=== PATIENT | female | born 1950 | race Caucasian/White ===

== ENCOUNTER 2019-07-02 05:08 | Day surgery (SDC) ==
[2019-06-22 11:31] LABS: URINE SOURCE CLEAN CATCH
[2019-06-22 11:37] LABS: BASO# 0.07 X1000 (0.0-0.2); BASO% 0.8 % (0.0-0.8); EOS# 0.24 X1000 (0.0-0.7); EOS% 2.7 % (0.0-10.0); HEMATOCRIT 43.4 % (37.0-47.0); HEMOGLOBIN 14.1 g/dL (12.0-16.0); IMM GRAN# 0.02 X1000 (0.0-0.04); IMM GRAN% 0.2 % (0.0-0.5); LYMPH# 2.12 X1000 (1.2-3.4); LYMPH% 24.1 % (20.5-51.1); MCH 30.3 PG (27-31); MCHC 32.5 g/dL (33-37); MCV 93.3 FL (81-99); MONO# 0.73 X1000 (0.11-0.59); MONO% 8.3 % (1.7-9.3); MPV 9.2 FL (7.4-10.4); NEUT# 5.63 X1000 (1.4-6.5); NEUT% 63.9 % (42.2-75.2); PLT 387 X1000 (130-400); RBC 4.65 XMIL (4.2-5.4); RDW 14.3 % (11.5-14.5); WBC 8.81 X1000 (4.8-10.8)
[2019-06-22 11:47] LABS: INR 0.99; PROTIME 13.2 Seconds (11.0-16.0)
--- NOTE | 2019-06-22 11:47 | EKG Report ---
Test Performed on : 06/22/2019 11:16:18 AM Test Reason : PAT Blood Pressure : / mmHG Vent. Rate : 051 BPM Atrial Rate : 051 BPM P-R Int : 184 ms QRS Dur : 084 ms QT Int : 438 ms P-R-T Axes : 047 -19 010 degrees QTc Int : 403 ms Sinus bradycardia. Septal infarct , age undetermined Abnormal ECG When compared with ECG of 21-OCT-2015 19:51, Vent. rate has decreased BY 31 BPM Septal infarct is now present Nonspecific T wave abnormality now evident in Inferior leads Confirmed by Theodore MCKEON, Marky Wall ([id number]) on 06/22/2019 4:36:20 PM
[2019-06-22 11:50] LABS: HEMOGLOBIN A1C 6.1 % (4.8-6.0)
[2019-06-22 12:00] LABS: AGAP 11; ALBUMIN 3.7 g/dL (3.5-5.0); BUN 16 mg/dL (8-22); CALCIUM 8.9 mg/dL (8.8-10.2); CHLORIDE 102 mmol/L (98-107); COSMO 279; CREATININE 0.9 mg/dL (0.5-0.9); ESTIMATED GFR > 60; GLUCOSE 95 mg/dL (70-104); POTASSIUM 3.8 mmol/L (3.5-5.1); SODIUM 139 mmol/L (136-145); TCO2 26 mmol/L (25-35)
[2019-06-22 12:06] LABS: BILIRUBIN URINE NEGATIVE (NEGATIVE); BLOOD URINE SMALL (NEGATIVE); COLOR YELLOW; GLUCOSE URINE NEGATIVE (NEGATIVE); KETONE URINE NEGATIVE (NEGATIVE); LEUKOCYTES URINE NEGATIVE (NEGATIVE); NITRITE URINE NEGATIVE (NEGATIVE); PH URINE 5.5; PROTEIN URINE NEGATIVE (NEGATIVE); SP GRAVITY URINE 1.018; TURBIDITY URINE CLEAR (CLEAR); UROBILINOGEN URINE NORMAL (NORMAL)
[2019-06-22 12:08] LABS: UR EPITHELIAL CELLS <10 /HPF (<10); URINE BACTERIA NEGATIVE /HPF; URINE RBC <10 /HPF (<10); URINE WBC <10 /HPF (<10)
[2019-07-02] MEDS ORDERED: REGLAN ONE (05:37)
[2019-07-02] MEDS ORDERED: COLACE ONE (05:37)
[2019-07-02] MEDS ORDERED: PEPCID ONE (05:37)
[2019-07-02] MEDS ORDERED: LR 1,000 ML ONE (05:38)
[2019-07-02] MEDS ORDERED: CELEBREX ONE (05:38)
[2019-07-02] MEDS ORDERED: LYRICA ONE (05:38)
[2019-07-02] MEDS ORDERED: KEFZOL 1 GM/D5W 2 GM/100 ML IVPB ONE (05:38)
[2019-07-02] MEDS ORDERED: DIPRIVAN 1% 500 MG/50 ML BOTTLE ONE (06:32)
[2019-07-02] MEDS ORDERED: TORADOL ONE (06:37)
[2019-07-02] MEDS ORDERED: SENSORCAINE 0.25%/EPI 1:200,000 ONE (06:37)
[2019-07-02] MEDS ORDERED: DURAMORPH ONE (06:37)
[2019-07-02] MEDS ORDERED: EXPAREL 1.3% ONE (06:38)
[2019-07-02] MEDS ORDERED: SODIUM CHLORIDE 0.9% ONE (06:38)
[2019-07-02] MEDS: CYKLOKAPRON 1,000 MG/NS 2,000 MG/200 ML IVPB ONE ×2 (07:20→09:20)
[2019-07-02] MEDS ORDERED: DIPRIVAN 1% ONE ×2 (08:07→09:12)
[2019-07-02] MEDS ORDERED: NEO-SYNEPHRINE ONE (08:14)
[2019-07-02] MEDS ORDERED: EPHEDRINE ONE (08:14)
[2019-07-02] MEDS ORDERED: EPINEPHRINE ONE (08:14)
[2019-07-02 08:55] LABS: URINE SOURCE CATH
[2019-07-02 09:02] LABS: BILIRUBIN URINE NEGATIVE (NEGATIVE); BLOOD URINE MODERATE (NEGATIVE); COLOR YELLOW; GLUCOSE URINE NEGATIVE (NEGATIVE); KETONE URINE NEGATIVE (NEGATIVE); LEUKOCYTES URINE NEGATIVE (NEGATIVE); NITRITE URINE NEGATIVE (NEGATIVE); PROTEIN URINE TRACE mg/dL (NEGATIVE); SP GRAVITY URINE 1.018; TURBIDITY URINE CLEAR (CLEAR); UROBILINOGEN URINE NORMAL (NORMAL)
[2019-07-02 09:05] LABS: UR EPITHELIAL CELLS <10 /HPF (<10); URINE BACTERIA NEGATIVE /HPF; URINE WBC <10 /HPF (<10)
[2019-07-02] MEDS ORDERED: MARCAINE 0.25% PF ONE (09:15)
[2019-07-02] MEDS ORDERED: DEPO-MEDROL ONE (09:15)
[2019-07-02] MEDS ORDERED: NS 1,000 ML ONE (10:01)
[2019-07-02] MEDS ORDERED: VANCOMYCIN 1 GM/NS 1 GM/250 ML IVPB IV ONE (10:06)
[2019-07-02] MEDS ORDERED: MILK OF MAGNESIA PO PRN (10:06)
[2019-07-02] MEDS ORDERED: MORPHINE IV PRN (10:06)
[2019-07-02] MEDS ORDERED: ZOFRAN IV PRN (10:06)
[2019-07-02] MEDS ORDERED: OXY IR PO PRN ×2 (10:06)
[2019-07-02] MEDS ORDERED: ZOFRAN PO PRN (10:06)
[2019-07-02] MEDS: DILAUDID ONE ×4 (10:12→10:34)
[2019-07-02] MEDS ORDERED: KEFZOL 1 GM/D5W 1 GM/50 ML IVPB IV SCH (10:15)
--- NOTE | 2019-07-02 10:38 | Diag Imaging Result Doc PS360 ---
XRAY HIP UNILATERAL RT - 07/02/2019 INDICATION: Post-Op TECHNIQUE: Two views COMPARISON: 07/03/2018 FINDINGS: There has been placement of a right total hip arthroplasty in good position. Alignment is anatomic. No hardware fracture or loosening. IMPRESSION: No complication. Electronically signed by Teddy Conway 07/02/2019 10:36 AM
[2019-07-02] MEDS ORDERED: OXY IR ONE (10:46)
[2019-07-02] MEDS: NS 1,000 ML IV SCH ×2 (11:30→22:42)
[2019-07-02] MEDS: TYLENOL PO SCH ×2 (12:08→18:24)
[2019-07-02] MEDS: ULTRAM PO SCH ×2 (12:09→18:24)
--- NOTE | 2019-07-02 12:27 | OPERATIVE NOTE ---
PROCEDURE DATE : 07/02/2019 PREOPERATIVE DIAGNOSES: 1. Right hip osteoarthritis. 2. Right knee osteoarthritis. POSTOPERATIVE DIAGNOSES: 1. Right hip osteoarthritis. 2. Right knee osteoarthritis. PROCEDURES PERFORMED: 1. Right total hip arthroplasty. 2. Intraarticular Depo Medrol injection into the right knee. SURGEON: Dr. Sanford Andres ASSISTANTS: 1. Estela Gonsalez. 2. Atilio Perea. ANESTHESIA: Spinal anesthetic with conscious sedation. COMPLICATIONS: None. SPECIMENS: None. DRAINS: None. BLOOD LOSS: 150 mL. IMPLANTS: 1. Biomet G7 three-hole acetabular cup measuring 52 mm with liner size E. 2. Biomet G7 highly crosslinked neutral polyethylene liner size E for a 36 mm head. 3. Size 10 taper lock complete microplasty press-fit stem, standard offset, with a 36 mm cobalt chrome head and a minus 6 neck. INDICATION FOR PROCEDURE: Ms. Culp is a 69-year-old lady who has been followed for complaints of right hip pain. She tried and failed conservative treatment modalities including oral anti- inflammatories and physical therapy. She reports pain progressed to where it was impacting activities of daily living and wished to proceed with total hip replacement. Risks, benefits and alternative therapies were discussed with the patient regarding surgery. Risks of surgery included but were not limited to risk of bleeding and infection, damage to nerves and vessels around the area, leg length discrepancy, continued pain following surgery, dislocation and need for revision surgery. There is also risk of anesthesia including blood clot, stroke, heart attack and even . The patient understands these risks. All questions were answered. Informed consent was obtained. DESCRIPTION OF PROCEDURE: Ms. Culp was identified by wrist band and greeted in the preoperative holding area on 07/02/2019. Her right lower extremity, which was the operative site, was marked with indelible ink per [facility] protocol. Following this, the patient was transferred back to the operating room for surgery. Upon entering the OR, spinal anesthetic was administered on her hospital bed. She was then consciously sedated and transferred onto a [place] table in supine position. All bony prominences were well padded. Bilateral feet were placed into the well leg boot holders. At this time, all bony prominences were well padded. The right lower extremity was prepped and draped in routine sterile fashion. Formal time-out was performed confirming correct patient, procedure, operative site, operative side, administration of preoperative antibiotics. Everyone was in agreement. Patient received 2 g Ancef prior to incision. A 10-blade knife was used to make a standard 10 cm incision for direct anterior approach to the hip. The knife was used to dissect through skin. Bovie cautery was used to dissect through subcutaneous tissue down to tensor fascia. Once the tensor fascia was identified, a fresh knife was used to make a longitudinal bernardo in the fascia, and curved Philip scissors were used to spread this incision along the length of our skin incision. Once this was done, the muscle belly of tensor fascia was teased off the anterior fascia until we full on the interval between sartorius and tensor fascia. Blunt Cobra was then placed superiorly over the femoral neck into the saddle. Once this was done, a hemostat was used to bluntly dissect and spread through the deep plane and fat between rectus femoris and tensor fascia. Lateral ascending circumflex vessels were identified and coagulated with the Bovie. Once this was done, we split through this interval down on the pericapsular fat. An additional blunt Cobra was placed along the inferior neck. At this time, capsular fat was elevated heading out to the acetabulum. A blue-handled 90 degree Hohmann was then placed over the anterior capsule and anterior acetabular lip. Once this was done, the elevator was used to clean off the capsule. We had excellent visualization of the anterior capsule. Bovie was used to make our anterior capsulotomy and using an inverted T-shaped capsulotomy. Number 1 Vicryl tagging sutures were then placed on the corners of the capsule to help with retraction and later closure of the capsular layer. Once this was done, we then released the capsule both superiorly and inferiorly. Inferiorly, our release was taken down to the level of the lesser trochanter. Our retractors were then placed within the capsule both superior and inferior to the femoral neck. Rongeur was used to remove large femoral neck osteophyte. We then marked the femoral neck at the level of our cut, and sagittal saw was used to make our femoral neck cut in routine fascia. A corkscrew was then used to remove the femoral head in routine fashion. Once this was done, retractors were replaced to give visualization of the acetabulum. We had a curved Hohmann retractor on the anterior superior acetabulum followed by sharp Hohmann over the posterior wall and a blunt Cobra over the anterior inferior acetabulum. A long-handled knife was used to remove surrounding labrum. Transverse acetabular ligament was visualized and left intact to help hand trimmer version of the cup. Bovie cautery was then used to clean out the fovea to the medial wall. Curet was used to ensure we had come down the medial wall. Once this was done, we then began with sequential reaming of the acetabulum starting with a 45 mm reamer for medialization. We then progressed to 47, 49 and 51 mm reamer. A 51 mm trial was then impacted and found to have good fit. We thus opened a 52 mm, 3-hole G7 acetabular liner and impacted this in position under fluoroscopy, trying to get 40 degrees of abduction and about 20 degrees of anteversion. We were satisfied with position of the cup. It was impacted into place and found to have good press-fit. We then proceeded with placement of 2 screws into the posterior superior quadrant in routine fashion. Both screws measured 30 mm. At this time, a neutral 36 mm size E polyethylene liner was impacted into position. We then proceeded with exposure of our femur. We began doing our femoral release. A curved Hohmann was placed over the posterior aspect of the greater trochanter. Bovie was then used to take the superior capsule off the greater trochanter in routine fashion. Once this release was complete, the 2-prong retractor was placed over the posterior aspect of the greater trochanter. Bone hook was placed in the femoral canal. Traction was released from the leg, and the leg was then extended and adducted while levering the femur out into the wound. Once we had good exposure of the femur, we then proceeded with using a rongeur to remove the remaining lateral femoral neck. Entry reamer was then used to go down the canal followed by the rat tail canal finder. At this time, we began with sequential broaching, starting with a size 4 and working our way up to a size 10. We had excellent press-fit with a size 10 stem. Calcar planer was then used to level off our femoral neck cut. We then trialed a standard offset minus 3 head. The leg was taken through full range of motion and found to be stable with this construct. She has slightly long compared to the contralateral side, so we decided to proceed with placement of a size 6 head. At this time, our trial implant was removed, and the femoral canal was copiously irrigated with normal saline. We then impacted a size 10 microplasty complete taper lock stem which had excellent press-fit. The minus 6 ball was trialed and found to have good stability with no signs of impingement or dislocation. Our final minus 6 neck with 36 mm cobalt chrome head was then impacted into position, and the hip was again reduced. At this time, final x-rays were taken with AP of the pelvis showing leg lengths. The patient was found to be a couple of millimeters long on the right side; however, she had a good stable hip, so we decided to proceed with this construct. Now we were satisfied with the version and placement of the cup. At this time, 250 mL of our 0.35% Betadine solution was poured into the wound and allowed to soak for 3 minutes. Once this was done, the hip was copiously irrigated with normal saline. Our deep Exparel cocktail was then injected around our anterior posterior capsule as well as rectus femoris, vastus lateralis, tensor fascia and sartorius. We then injected around the skin with our superficial Exparel cocktail. Following this, we proceeded with closure of the wound. We first closed our arthrotomy using number 1 Vicryl sutures. Following this, a running locking 0 Vicryl suture was used to close the tensor fascia. I placed several deep 0 Vicryl sutures for deep subcutaneous tissue closure followed by 2-0 Vicryl for subcutaneous tissue closure and 4-0 Monocryl for skin closure. The wound was then dressed with Dermabond and an Island dressing. At this time, all drapes were broken down, and we proceeded with injection of the right knee. The right knee was cleansed with Betadine. We then injected 80 mg of Depo Medrol plus 4 mL of 0.5% Marcaine plain through a superolateral injection site. The wound was then cleaned with alcohol, and Betadine was placed. At this time, the patient was then awakened, transferred over to hospital stretcher and taken to the recovery room in stable condition. There were no acute complications during the procedure. All sponge, needle and instrument counts were correct at the conclusion of the procedure.
[2019-07-02] MEDS: KEFZOL 2 GM/D5W 2 GM/50 ML IVPB IV SCH ×2 (15:50→22:41)
[2019-07-02] MEDS: LYRICA PO SCH (20:21)
[2019-07-02] MEDS: PERIDEX MT SCH (20:21)
[2019-07-02] MEDS: CELEBREX PO SCH (20:21)
[2019-07-03] MEDS: ULTRAM PO SCH ×2 (01:44→06:02)
[2019-07-03] MEDS: TYLENOL PO SCH ×2 (01:44→06:01)
[2019-07-03] MEDS: COLACE PO SCH ×2 (01:44→08:02)
--- NOTE | 2019-07-03 06:55 | ORTHOPAEDICS PROGRESS NOTE ---
DATE: 07/02/2019 SUBJECTIVE: No acute events today. Patient ambulated 25 feet with physical therapy. She states she is feeling great and significantly better than she did preoperatively. She did have a little bit of lightheadedness while ambulating, likely secondary to anesthesia wearing off. She states she feels great now. Her Emery has been removed and she has urinated twice. No complaints. OBJECTIVE: Afebrile. Vital signs are stable. Extremities: Examination of the right lower extremity shows surgical dressing to be clean, dry, intact. Thigh and calf soft and compressible. No signs of hematoma or fluctuance. No pain with log roll of the hip. Neurovascularly intact. ASSESSMENT: A 69-year-old female status post right total hip arthroplasty. PLAN: 1. Patient is weightbearing as tolerated to the right lower extremity. Physical therapy to mobilize. Anterior hip precautions. 2. Aspirin DVT prophylaxis, start in the morning. 3. Ice to right lower extremity for pain. 4. Multimodal pain medication regimen has already been started. 5. Twenty-four hours of IV Ancef. 6. Disposition. Plan to discharge the patient home tomorrow after physical therapy if she meets goals and is doing well medically.
[2019-07-03 07:48] VITALS: BP 155/61
[2019-07-03] MEDS: CELEBREX PO SCH (08:01)
[2019-07-03] MEDS: PERIDEX MT SCH (08:01)
[2019-07-03] MEDS: LYRICA PO SCH (08:02)
[2019-07-03 08:21] LABS: HEMATOCRIT 35.6 % (37.0-47.0); HEMOGLOBIN 11.8 g/dL (12.0-16.0)
[2019-07-03] MEDS ORDERED: HYDROCHLOROTHIAZIDE PO SCH (09:00)
[2019-07-03] MEDS ORDERED: PROZAC PO SCH (09:00)
[2019-07-03] MEDS ORDERED: PEPCID PO SCH (09:00)
[2019-07-03] MEDS ORDERED: ASPIRIN PO SCH (09:00)
[2019-07-03 09:12] LABS: AGAP 14; BUN 9 mg/dL (8-22); CALCIUM 8.3 mg/dL (8.8-10.2); CHLORIDE 102 mmol/L (98-107); COSMO 278; CREATININE 0.8 mg/dL (0.5-0.9); ESTIMATED GFR > 60; GLUCOSE 105 mg/dL (70-104); POTASSIUM 3.8 mmol/L (3.5-5.1); SODIUM 140 mmol/L (136-145); TCO2 24 mmol/L (25-35)
--- NOTE | 2019-07-03 09:48 | ORTHOPAEDICS PROGRESS NOTE ---
DATE: 07/03/2019 SUBJECTIVE: No acute events overnight. Patient states her pain is well controlled. She has been up to the bathroom multiple times throughout the night with no issues. She tolerated a diet. She is ready to go home. OBJECTIVE: Vital Signs: Afebrile. Her vital signs are stable. Laboratory Data: Hematocrit is pending. Extremities: Examination of right lower extremity shows surgical dressing to be clean, dry, intact. Thigh and calf are soft and compressible. No pain with log roll of the hip. Motor is intact with EHL, tibialis anterior, gastrocsoleus complex. Sensation intact to light touch of L3 through S1. Dorsalis pedis pulse palpable. ASSESSMENT: A 69-year-old female, status post right total hip arthroplasty. Postoperative day 1. PLAN: 1. Patient is weightbearing as tolerated to right lower extremity. Physical therapy to mobilize. Anterior hip precautions. 2. Aspirin, DVT prophylaxis. 3. Ice to right lower extremity as needed for pain. 4. I will follow up hematocrit this morning. DISPOSITION: I plan to discharge the patient home later this morning after physical therapy as long she meets goals. She is to follow up with me in clinic in 2 weeks at her previously scheduled appointment.
== END 2019-07-03 11:03 | disposition home or self-care (01) ==
LOC: 4N 05:08 → OR 05:08
PROVIDERS: ATTEND Orthopaedic Surgery Sports Medicine